=== PATIENT | female | born 1950 | race Caucasian/White ===

== ENCOUNTER 2022-10-17 22:51 | Emergency (ER) | payer MEDICARE, OTHER ==
[~2022-10-17] VITALS: Ht 157.5 cm; Wt 65.8 kg
--- NOTE | 2022-10-17 23:15 | ED Fall/Injury ---
General Chief Complaint: Trauma-Non Activation Stated Complaint: FALL LEFT ANKLE PAIN/HEAD INJURY Source: patient, EMS Exam Limitations: no limitations History of Present Illness Date Seen by Provider: Oct 17, 2022 Time Seen by Provider: 23:03 Initial Comments 71-year-old female presents for left ankle injury that caused her to fall and hit her head. Bystanders reported she "was very shaky" after that. There was concern she may have had seizure-like activity. She was reportedly alert during this time. On arrival she complains of a headache and left ankle pain. She was able to get up and ambulate. She states after she fell down she felt as though her blood pressure might be low. EMS checked her blood sugar in route was normal. All other systems reviewed and negative except documented per HPI. Voice recognition software was used to help create this chart Allergies and Home Medications Patient Home Medication List Home Medication List Reviewed: Yes Review of Systems Review of Systems Constitutional: see HPI Past Pkbfuyp-Ilgsyv-Tuszmk Hx Patient Social History Tobacco Use?: No Use of E-Cig and/or Vaping dev: No Substance use?: No Alcohol Use?: No Physical Exam Vital Signs Vital Signs - First Documented 10/17/22 22:51 Temp 36.0 Pulse 79 Resp 20 B/P (MAP) 131/60 (83) Pulse Ox 98 Capillary Refill : Height, Weight, BMI Height: '" Weight: lbs. oz. kg; BMI Method: General Appearance: WD/WN, no apparent distress HEENT: PERRL/EOMI, normal ENT inspection, TMs normal, pharynx normal Neck: non-tender, supple, normal inspection Cardiovascular: regular rate, rhythm, no murmur Respiratory: chest non-tender, lungs clear, normal breath sounds, no respiratory distress, no accessory muscle use Gastrointestinal: normal bowel sounds, non tender, soft Back: normal inspection, no vertebral tenderness Extremities: normal capillary refill, other (Swelling of left ankle near the lateral malleolus. Tenderness palpation of the distal tip of the lateral malleolus. No obvious deformity. Neurovascular motor and sensory intact. Proximal leg tenderness.) Neurologic/Psychiatric: sharepoint consultant II-XII nml as tested, no motor/sensory deficits, alert, normal mood/affect, oriented x 3 Skin: normal color, warm/dry Progress/Results/Core Measures Results/Orders My Orders Orders - RADHIKA GAITAN DO Ankle, Left, 3 Views (10/17/22 22:53) Ct Head Wo (10/17/22 22:53) Crutches (10/17/22 23:43) Vital Signs/I&O 10/17/22 10/18/22 22:51 00:10 Temp 36.0 Pulse 79 81 Resp 20 B/P (MAP) 131/60 (83) 103/46 Pulse Ox 98 98 Departure Communication (Admissions) Patient is hemodynamically stable, neurologically intact. Her is at bedside describes the event. He states when she fell down she did hit her head slightly and he thinks he had a brief loss of consciousness. During this time she was looking to the side and her tongue was to the side. This lasted only very brief few seconds and she came to. He described no shaking type activity. She states she felt normal immediately and had pain in her left ankle. On arrival she complains only of pain in her left ankle. CT scan of her head is undertaken due to possible seizure-like activity to rule out intracranial hemorrhage. No evidence for intracranial hemorrhage, skull fracture or other acute abnormality. I did independently review these images. Left ankle imaging is negative on my independent review as well. She is discharged in stable condition with supportive care. She is given crutches to use as needed with weightbearing as tolerated. Also given an Aircast. Impression Primary Impression: Left ankle sprain Qualified Codes: S93.402A - Sprain of unspecified ligament of left ankle, initial encounter Additional Impressions: Fall Qualified Codes: W19.XXXA - Unspecified fall, initial encounter Closed head injury Qualified Codes: S09.90XA - Unspecified injury of head, initial encounter Disposition: 01 HOME, SELF-CARE Condition: Stable Departure-Patient Inst. Patient Instructions: Minor Head Injury, Adult ED, Ankle Sprain (DC) Add. Discharge Instructions: As discussed the activity described does not sound like a typical seizure. The CT scan of your head is negative for any bleeding or fractures. The x-rays of her ankle are negative for any fractures I think this is likely a sprain. Use ice and elevate it when not in use. Use ibuprofen and Tylenol as needed for pain. Use the crutches as needed as well as the Aircast. You may bear weight as tolerated. Return to the emergency department for any severe concerns. Follow-up with your primary doctor for any nonemergent needs. All discharge instructions reviewed with patient and/or family. Voiced understanding. RADHIKA GATIAN DO Oct 17, 2022 23:15
[2022-10-18 00:10] VITALS: BP 103/46
--- NOTE | 2022-10-18 05:21 | Diagnostic Imaging Report ---
Indication: Left ankle injury 3 views of the left ankle show no fracture, dislocation or other acute abnormalities. IMPRESSION: Negative left ankle Dictated by: Dictated on workstation # [id number]
--- NOTE | 2022-10-18 07:20 | Diagnostic Imaging Report ---
EXAMINATION: CT head without contrast. TECHNIQUE: Multiple contiguous axial images were obtained through the brain without the use of intravenous contrast. All CT scans use one or more of the following dose optimizing techniques: automated exposure control, MA and/or KvP adjustment based on patient size and exam type or iterative reconstruction. HISTORY: head injury, poss seizure like activity COMPARISON: None available. FINDINGS: The ventricles and sulci are normal. No abnormal attenuation of brain parenchyma is present. No acute intracranial hemorrhage or abnormal extra-axial fluid collections are present. There is a calcified extra-axial lesion along the superior left frontal lobe representing a small meningioma. Calcification of the intracranial ICAs. No hyperdense vessel. The calvarium is intact. The mastoid air cells are clear. The visualized paranasal sinuses are clear. The orbits are normal. IMPRESSION: 1. No acute intracranial abnormality. 2. Agree with preliminary interpretation. Dictated by: Dictated on workstation # [id number]
== END 2022-10-18 00:10 | disposition home or self-care (01) ==
LOC: ER 22:54
DX: S09.90XA Unspecified injury of head, initial encounter (principal); S93.402A Sprain of unspecified ligament of left ankle, initial encounter; W18.30XA Fall on same level, unspecified, initial encounter
CPT/HCPCS: 70450; 73610; 99283; L4350